=== PATIENT | female | born 2000 | race Caucasian/White ===

== ENCOUNTER 2022-09-20 16:09 | Emergency (ER) | payer OTHER ==
[2022-09-20 16:23] VITALS: BP 106/71; PULSE 103; RESP 18; TEMP 97.5; BMI 37.5
== END 2022-09-20 17:04 | disposition home or self-care (01) ==
LOC: JERFT 16:09
DX: H10.023 Other mucopurulent conjunctivitis, bilateral (principal)
CPT/HCPCS: 99281-25

== ENCOUNTER 2023-09-10 15:17 | Emergency (ER) | payer OTHER ==
[2023-09-10 15:34] VITALS: BP 138/77; PULSE 100; TEMP 98.4; BMI 37.5
[2023-09-10] MEDS ORDERED: ACETAMINOPHEN 500 MG TABLET (FP) ONE (16:27)
[2023-09-10] MEDS: ACETAMINOPHEN 500 MG TABLET (FP) PO ONE (17:01)
== END 2023-09-10 18:29 | disposition home or self-care (01) ==
LOC: JER 15:17 → JERFT 15:17
DX: R09.81 Nasal congestion (principal); R50.9 Fever, unspecified; J06.9 Acute upper respiratory infection, unspecified; R05.9 Cough, unspecified; Z20.822 Contact with and (suspected) exposure to COVID-19
CPT/HCPCS: 0241U-QW; 99283-25